=== PATIENT | female | born 1960 | race Caucasian/White ===

== ENCOUNTER 2025-05-03 06:22 | Day surgery (SDC) | payer MEDICARE ==
[~2025-05-03] VITALS: Ht 160 cm; Wt 82.5 kg
[~2025-05-03 06:22] MED LIST: ASPI81TA26 PO; B-12100010 PO; LIPI10TA PO; THERTAB52 PO; VITA100093 PO; VIVE0.03 TD
[2025-05-03] MEDS ORDERED: ONDANSETRON 4MG/2ML VIAL As Ordered ONE (06:51)
[2025-05-03] MEDS ORDERED: dexAMETHasone 4 MG/ML 1 ML VIAL As Ordered ONE (06:51)
[2025-05-03] MEDS ORDERED: LIDOCAINE 2% 100 MG/5 ML SDV (FOR ANES.) As Ordered ONE (06:51)
[2025-05-03] MEDS ORDERED: MIDAZOLAM INJ 2 MG/2 ML VIAL As Ordered ONE (06:53)
[2025-05-03] MEDS: LR 1,000 ML IV SCH (07:16)
[2025-05-03] MEDS ORDERED: LIDOCAINE 2% W/EPINEPHrine 20 ML VIAL **PRES FREE As Ordered ONE (07:23)
[2025-05-03] MEDS ORDERED: SCOPOLAMINE 1MG TRANSDERMAL PATCH As Ordered ONE (07:31)
[2025-05-03] MEDS: SCOPOLAMINE 1MG TRANSDERMAL PATCH TOP ONE (07:36)
[2025-05-03] MEDS: ceFAZolin SOD 2 GM IV ONCE IV ONE (07:45)
[2025-05-03] MEDS ORDERED: ACETAMINOPHEN 1000MG/100ML IV BAG As Ordered ONE (07:47)
[2025-05-03] MEDS ORDERED: HYDROMORPHONE HCL 0.5 MG/0.5 ML SYRINGE IV PRN (08:20)
[2025-05-03 09:08] VITALS: BP 118/59; TEMP 96.5; O2SAT 95
== END 2025-05-03 09:35 | disposition home or self-care (01) ==
LOC: M SDC 06:22
PROVIDERS: ATTEND Plastic Surgery Surgery of the Hand
DX: L72.0 Epidermal cyst (principal); L57.9 Skin changes due to chronic exposure to nonionizing radiation, unspecified; E78.5 Hyperlipidemia, unspecified; D68.51 Activated protein C resistance; Z86.73 Personal history of transient ischemic attack (TIA), and cerebral infarction without residual deficits; Z85.41 Personal history of malignant neoplasm of cervix uteri; Z79.82 Long term (current) use of aspirin; Z79.899 Other long term (current) drug therapy
CPT/HCPCS: 11442; 88305; J0131; J0688; J1100; J2250; J2405; J3010